=== PATIENT | female | born 1930 | race Two or more races ===

== ENCOUNTER 2016-05-22 11:38 | Emergency (ER) | payer MEDICARE, OTHER ==
[~2016-05-22] VITALS: Ht 160 cm; Wt 70.8 kg
[~2016-05-22 11:38] MED LIST: ASCO500T9 PO; CALC500T3 PO; CITA20TA19 PO; CLON1TAB PO; CYAN250T6 PO; ERGO400C PO; ESCI5TAB PO; ESOM40CA PO; EZET10TA PO; OMEG1CAP36 PO; RAMI10CA27 PO; SIMV10TA6 PO; VITA100C5 PO; VITA80008 PO
[2016-05-22 11:42] VITALS: BP 163/84
[2016-05-22] MEDS ORDERED: GUAIFENESIN/D-METHORPHAN HB 5 ML UDC ONE (13:00)
[2016-05-22] MEDS ORDERED: GUAIFENESIN/D-METHORPHAN HB 5 ML UDC PO ONE (13:00)
== END 2016-05-22 13:32 | disposition home or self-care (01) ==
LOC: ER 11:40
DX: J06.9 Acute upper respiratory infection, unspecified (principal); I10 Essential (primary) hypertension; K21.9 Gastro-esophageal reflux disease without esophagitis; Z95.811 Presence of heart assist device; Z88.6 Allergy status to analgesic agent
CPT/HCPCS: 71010; 99283; A4606; Z7610

== ENCOUNTER 2020-06-29 01:29 | Emergency (ER) | payer MEDICARE, OTHER ==
[~2020-06-29] VITALS: Ht 157.5 cm; Wt 68.9 kg
[~2020-06-29 01:29] MED LIST changes: +ASCO-352 PO; -ASCO500T9 PO; -CALC500T3 PO; +CALC500T89 PO; -EZET10TA PO; +EZET10TA6 PO; -RAMI10CA27 PO; +RAMI10CA32 PO; -SIMV10TA6 PO; +SIMV10TA98 PO
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
[2020-06-29] MEDS ORDERED: METOCLOPRAMIDE HCL 10 MG/2 ML VIAL ONE (01:38)
[2020-06-29] MEDS ORDERED: ACETAMINOPHEN ES 500 MG TABLET ONE (01:38)
[2020-06-29] MEDS ORDERED: diphenhydrAMINE HCL 50 MG/ML VIAL ONE (01:38)
[2020-06-29 01:53] LABS: BASOPHILS # (AUTO) 0.2 /CMM (0.0-0.2); BASOPHILS % (AUTO) 3.2 % (0.0-2.0); EOSINOPHILS % (AUTO) 3.4 % (0.0-6.0); HEMATOCRIT 42 % (33-45); LYMPHOCYTES # (AUTO) 2.4 /CMM (0.8-4.8); MEAN CORPUSCULAR HGB CONC 33 g/dl (31.0-36.0); MEAN CORPUSCULAR VOLUME 87 fL (82-100); MONOCYTES # (AUTO) 0.6 /CMM (0.1-1.30); MONOCYTES % (AUTO) 8.7 % (2.0-12.0); NEUTROPHILS # (AUTO) 3.1 /CMM (1.8-8.9); NEUTROPHILS % (AUTO) 47.7 % (43.0-81.0); PLATELET COUNT (AUTO) 232 /CMM (150-450); RED BLOOD CELL COUNT(AUTO) 4.86 MIL/uL (4.0-5.2); WHITE BLOOD COUNT (AUTO) 6.6 K/uL (4.3-11.0)
[2020-06-29] MEDS ORDERED: ACETAMINOPHEN ES 500 MG TABLET PO ONE (02:00)
[2020-06-29] MEDS ORDERED: IV NS 0.9% 500 ML BAG IV ONE (02:00)
[2020-06-29] MEDS ORDERED: diphenhydrAMINE HCL 50 MG/ML VIAL IV ONE (02:00)
[2020-06-29] MEDS ORDERED: METOCLOPRAMIDE HCL 10 MG/2 ML VIAL IV ONE (02:00)
--- NOTE | 2020-06-29 02:01 | NUR ---
TAKEN TO CT
[2020-06-29 02:03] LABS: CALCIUM, SERUM 9.3 mg/dL (8.5-10.1); CARBON DIOXIDE 29 mmol/L (21-32); CHLORIDE 94 mmol/L (98-107); CREATININE 0.7 mg/dL (0.6-1.3); GLUCOSE 97 mg/dL (74-106); POTASSIUM 4.2 mmol/L (3.5-5.1); SODIUM SERUM 130 mmol/L (136-145); UREA NITROGEN, BLOOD 9 mg/dL (7-18)
--- NOTE | 2020-06-29 02:10 | NUR ---
BACK FROM CT
--- NOTE | 2020-06-29 02:28 | NUR ---
URINE SAMPLE COLLECTED AND SENT TO LAB
[2020-06-29] MEDS ORDERED: hydrALAZINE HCL IV 20 MG VIAL IV ONE (02:30)
[2020-06-29] MEDS ORDERED: hydrALAZINE HCL IV 20 MG VIAL ONE (02:55)
--- NOTE | 2020-06-29 03:40 | NUR ---
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
--- NOTE | 2020-06-29 04:37 | NUR ---
pt is medically stable for D/C. IV removed. Catheter intact and site benign. Pressure and 4x4 applied to site. No bleeding noted.Patient discharged to home in stable condition. Written and verbal after care instructions given. Patient verbalizes understanding of instruction. pt was picked up by her son
[2020-06-29 04:39] VITALS: BP 160/81
== END 2020-06-29 04:40 | disposition home or self-care (01) ==
LOC: ER 01:32
DX: R51.9 Headache, unspecified (principal); I10 Essential (primary) hypertension; K21.9 Gastro-esophageal reflux disease without esophagitis; E78.00 Pure hypercholesterolemia, unspecified; I25.10 Atherosclerotic heart disease of native coronary artery without angina pectoris; Z95.818 Presence of other cardiac implants and grafts; Z88.6 Allergy status to analgesic agent; Z79.899 Other long term (current) drug therapy
CPT/HCPCS: 36415; 70450; 80048; 84484; 85025; 93005; 96374; 96375; 99285; J1200; J2765; J7040; J0360